=== PATIENT | female | born 1975 | race Caucasian/White ===

== ENCOUNTER 2018-10-23 10:12 | Emergency (ER) | payer MEDICAID ==
--- NOTE | 2018-10-23 10:28 | EDPHY ---
H & P Stated Complaint: chest tightness/epigastric Time Seen by Provider: 10/23/18 10:19 HPI/ROS: CHIEF COMPLAINT: Chest tightness and pain HISTORY OF PRESENT ILLNESS: Patient presents to the ED for evaluation of chest pain and tightness which is been occurring intermittently for the past 6 months. The patient does report some symptoms of dyspepsia. She denies any pleuritic chest pain. She denies asymmetric calf pain or swelling. The patient has a history of lower gastrointestinal symptoms which have been somewhat undifferentiated over the past several years. She has tried some "naturopathic" antacids without improvement. The patient has not discussed her chest pain and dyspnea with her primary care provider. She does not state that the symptoms are exertional. She does endorse some symptoms of gastroesophageal reflux. REVIEW OF SYSTEMS: A comprehensive 10 point review of systems is otherwise negative aside from elements mentioned in the history of present illness. Source: Patient - Medical/Surgical History Hx Asthma: No Hx Chronic Respiratory Disease: No Hx Diabetes: No Hx Cardiac Disease: No Hx Renal Disease: No Hx Cirrhosis: No Hx Alcoholism: No Hx HIV/AIDS: No Hx Splenectomy or Spleen Trauma: No Other PMH: preeclempsia - Social History Smoking Status: Never smoked - Physical Exam Exam: General Appearance: Alert, no distress Eyes: Pupils equal and round no pallor or injection ENT, Mouth: Mucous membranes moist Respiratory: There are no retractions, lungs are clear to auscultation Cardiovascular: Regular rate and rhythm Gastrointestinal: Abdomen is soft and nontender, no masses, bowel sounds normal Neurological: A&O, normal motor function, normal sensory exam, normal cranial nerves Skin: Warm and dry, no rashes Musculoskeletal: Neck is supple nontender Extremities: symmetrical, full range of motion Psychiatric: Patient is oriented X 3, there is no agitation Constitutional: Initial Vital Signs Temperature (C) 36.9 C 10/23/18 10:19 Heart Rate 101 H 10/23/18 10:19 Respiratory Rate 18 10/23/18 10:19 Blood Pressure 129/95 H 10/23/18 10:19 O2 Sat (%) 98 10/23/18 10:19 O2 Delivery Mode Room Air Allergies/Adverse Reactions: No Known Allergies Allergy (Unverified 10/23/18 10:18) Home Medications: Medication Instructions Recorded Hydrocodone/APAP 5/325 [[place] 1 - 2 tab PO Q4PRN #20 tab 10/11/11 5/325 (*)] Amoxicillin/Potassium Clav 875 mg PO BID #20 tablet 10/14/11 [Augmentin 875-125 Tablet] Dexamethasone [Decadron] 10 mg PO DAILY #10 tab 10/14/11 Hydrocodone/APAP 5/325 [[place] 1 tab PO Q4PRN PRN #20 tab 10/14/11 5/325 (*)] Medical Decision Making - Diagnostics EKG Interpretation: EKG: Complete interpretation has been separately recorded in the [facility] archive. Summary impression: Sinus rhythm Imaging Results: Imaging Impressions Chest X-Ray 10/23/18 11:00 Impression: No acute findings in the chest. ED Course/Re-evaluation: The patient presents to the ED for evaluation of atypical chest pain which is been occurring episodically over the past 6 months. Patient has no risk factors for coronary artery disease. She has no history of exertional chest pain or shortness of breath. Database emergency department consisted of a normal EKG Workup in the ED consisted of an unremarkable chest x-ray. The patient's troponin is normal. D-dimer is negative which I feel adequately excludes pulmonary embolism. The patient has a heart score of 0. I do suspect her symptoms are related to gastroesophageal reflux. A trial of a antacid medication is reasonable. Patient will be discharged home with instructions to follow up with her primary care provider for further evaluation. She is encouraged to return to the emergency department immediately for any exertional chest pain, severe dyspnea, markedly worsening symptoms or other concerns. Differential Diagnosis: Differential diagnosis considered includes esophageal spasm, gastroesophageal reflux disease, pulmonary embolism, pneumonia, pneumothorax, acute coronary syndrome, pericarditis - Data Points Laboratory Results: Laboratory Results 10/23/18 10:30 10/23/18 10:30 10/23/18 10/23/18 10/23/18 10:31 10:30 10:30 WBC RBC Hgb Hct MCV MCH MCHC RDW Plt Count MPV Neut % (Auto) Lymph % (Auto) [place] % (Auto) Eos % (Auto) Baso % (Auto) Nucleat RBC Rel Count Absolute Neuts (auto) Absolute Lymphs (auto) Absolute Monos (auto) Absolute Eos (auto) Absolute Basos (auto) Absolute Nucleated RBC Immature Gran % Immature Gran # D-Dimer < 0.27 ug/mLFEU ug/mLFEU (0.00-0.50) Sodium 139 mEq/L mEq/L (135-145) Potassium 4.0 mEq/L mEq/L (3.3-5.0) Chloride 103 mEq/L mEq/L (97-110) Carbon Dioxide 27 mEq/l mEq/l (22-31) Anion Gap 9 mEq/L mEq/L (6-14) BUN 11 mg/dL mg/dL (7-23) Creatinine 0.8 mg/dL mg/dL (0.6-1.0) Estimated GFR > 60 Glucose 125 mg/dL H mg/dL (70-100) Calcium 9.3 mg/dL mg/dL (8.5-10.4) Total Bilirubin 0.5 mg/dL mg/dL (0.1-1.4) Conjugated Bilirubin 0.0 mg/dL mg/dL (0.0-0.5) Unconjugated Bilirubin 0.5 mg/dL mg/dL (0.0-1.1) AST 18 IU/L IU/L (14-46) ALT 17 IU/L IU/L (9-52) Alkaline Phosphatase 50 IU/L IU/L (38-126) POC Troponin I 0.00 ng/mL ng/mL (0.00-0.08) Troponin I < 0.012 ng/mL ng/mL (0.000-0.034) Total Protein 7.4 g/dL g/dL (6.3-8.2) Albumin 4.3 g/dL g/dL (3.5-5.0) Lipase 57 IU/L IU/L (23-300) 10/23/18 10:30 WBC 5.54 10^3/uL 10^3/uL (3.80-9.50) RBC 4.52 10^6/uL 10^6/uL (4.18-5.33) Hgb 13.6 g/dL g/dL (12.6-16.3) Hct 40.1 % % (38.0-47.0) MCV 88.7 fL fL (81.5-99.8) MCH 30.1 pg pg (27.9-34.1) MCHC 33.9 g/dL g/dL (32.4-36.7) RDW 12.0 % % (11.5-15.2) Plt Count 247 10^3/uL 10^3/uL (150-400) MPV 11.2 fL fL (8.7-11.7) Neut % (Auto) 55.3 % % (39.3-74.2) Lymph % (Auto) 34.8 % % (15.0-45.0) [place] % (Auto) 7.8 % % (4.5-13.0) Eos % (Auto) 0.4 % L % (0.6-7.6) Baso % (Auto) 1.3 % % (0.3-1.7) Nucleat RBC Rel Count 0.0 % % (0.0-0.2) Absolute Neuts (auto) 3.07 10^3/uL 10^3/uL (1.70-6.50) Absolute Lymphs (auto) 1.93 10^3/uL 10^3/uL (1.00-3.00) Absolute Monos (auto) 0.43 10^3/uL 10^3/uL (0.30-0.80) Absolute Eos (auto) 0.02 10^3/uL L 10^3/uL (0.03-0.40) Absolute Basos (auto) 0.07 10^3/uL 10^3/uL (0.02-0.10) Absolute Nucleated RBC 0.00 10^3/uL 10^3/uL (0-0.01) Immature Gran % 0.4 % % (0.0-1.1) Immature Gran # 0.02 10^3/uL 10^3/uL (0.00-0.10) D-Dimer Sodium Potassium Chloride Carbon Dioxide Anion Gap BUN Creatinine Estimated GFR Glucose Calcium Total Bilirubin Conjugated Bilirubin Unconjugated Bilirubin AST ALT Alkaline Phosphatase POC Troponin I Troponin I Total Protein Albumin Lipase Point of Care Test Results: Chemistry 10/23/18 10:31 POC Troponin I 0.00 ng/mL ng/mL (0.00-0.08) Departure - Departure Disposition: Home, Routine, Self-Care Clinical Impression: Chest pain Condition: Good Instructions: Chest Pain (ED) Additional Instructions: 1. Please begin taking Zantac 150 mg twice daily. This medication is available [id number]. 2. The workup in the emergency department today demonstrates no evidence of a heart attack, blood clot or pulmonary condition. 3. Please return to the ED immediately for worsening chest pain, exertional chest pain, severe shortness of breath or other concerns. 4. Please schedule a follow-up appointment with your primary care provider. Referrals: Sanjuana Ramos MD [Primary Care Provider] - As per Instructions
[2018-10-23 10:42] LABS: PLATELET COUNT 247 10^3/uL (150-400)
--- NOTE | 2018-10-23 11:02 | CPEKG ---
Test Reason : OPEN Blood Pressure : / mmHG Vent. Rate : 076 BPM Atrial Rate : 076 BPM P-R Int : 121 ms QRS Dur : 114 ms QT Int : 410 ms P-R-T Axes : 069 026 067 degrees QTc Int : 462 ms Sinus rhythm Atrial premature complex Confirmed by Eliseo Baird ([id number]) on 10/23/2018 11:01:49 AM Referred By: Confirmed By:Eliseo Baird
[2018-10-23 11:46] VITALS: BP 129/80
== END 2018-10-23 11:46 | disposition home or self-care (01) ==
DX: R07.89 Other chest pain (principal)
CPT/HCPCS: 84484-PO